=== PATIENT | female | born 1940 | race Caucasian/White ===

== ENCOUNTER 2019-07-02 08:18 | Emergency (ER) | payer MEDICARE ==
[2019-07-02] MEDS ORDERED: ASPIRIN 81 MG CHEWABLE TABLET PO ONE (08:22)
--- NOTE | 2019-07-02 08:41 | Emergency Department Record ---
History of Present Illness - General Chief Complaint: Chest Pain Stated Complaint: CHEST PAIN/PAIN IN ARM Time Seen by Provider: 07/02/19 08:22 Source: Patient, RN notes reviewed Mode of Arrival: Ambulatory - History of Present Illness Initial Comments: patient complains of chest pain as heaviness which stated at 7am and she took one nitro SL and the pain went away. Previous aortic valve replacement and pacemaker. No diaphoresis and no abdominal pain. Cardiology is Dr Beltran at [facility]. Patient said her nitropatch was stopped about 3 weeks ago[address] Primary is Dr Nesbitt. Dr Snider checked out her pacemaker and it is good. MD Complaint: Chest pain Onset/Timin -: Hour(s) Onset: Awoke with symptoms Pain Location: Substernal Quality: Aching, Heaviness, Tightness Consistency: Now resolved - Related Data Home Medications Medication Instructions Recorded Confirmed Last Taken Aspirin [Aspirin EC] 81 mg PO DAILY 07/02/19 07/02/19 1 Day Ago ~07/01/19 Atorvastatin Calcium 20 mg PO DAILY 07/02/19 07/02/19 1 Day Ago ~07/01/19 Ferrous Sulfate 325 mg PO DAILY 07/02/19 07/02/19 1 Day Ago ~07/01/19 Glipizide 5 mg PO DAILY 07/02/19 07/02/19 1 Day Ago ~07/01/19 Levothyroxine Sodium [Synthroid] 125 mcg PO DAILY 07/02/19 07/02/19 1 Day Ago ~07/01/19 Lisinopril 20 mg PO DAILY 07/02/19 07/02/19 1 Day Ago ~07/01/19 Metformin HCl 1,000 mg PO BID 07/02/19 07/02/19 1 Day Ago ~07/01/19 Metoprolol Tartrate [Lopressor] 50 mg PO BID 07/02/19 07/02/19 1 Day Ago ~07/01/19 Nitroglycerin [Nitrostat] 0.4 mg SL TID PRN 07/02/19 07/02/19 1 Day Ago ~07/01/19 Warfarin Sodium 3 mg PO QPM 07/02/19 07/02/19 1 Day Ago ~07/01/19 Previous Rx's Medication Instructions Recorded Nitroglycerin [Nitroglycerin Patch] 1 each TD DAILY #30 patch.[email or web address] 07/02/19 Allergies Allergy/AdvReac Type Severity Reaction Status Date / Time dicyclomine Allergy ANAPHYLAXIS Verified 07/02/19 08:34 Travel Screening - Travel/Exposure Within Last 30 Days Have you traveled within the last 30 days?: No - Travel/Exposure Within Last Year Have you traveled outside the [place] in the last year?: No - Additonal Travel Details Have you been exposed to anyone with a communicable illness?: No - Travel Symptoms Symptom Screening: None Review of Systems Reviewed: No additional complaints except as noted below Constitutional: Reports: As per HPI. Denies: Chills, Fever, Malaise, Night sweats, Weakness, Weight change Eyes: Reports: As per HPI. Denies: Eye discharge, Eye pain, Photophobia, Vision change ENT: Reports: As per HPI. Denies: Congestion, Dental pain, Ear pain, Epistaxis, Hearing loss, Throat pain Respiratory: Reports: As per HPI. Denies: Cough, Dyspnea, Hemoptysis, Stridor, Wheezes Cardiovascular: Reports: As per HPI, Chest pain. Denies: Arrhythmia, Dyspnea on exertion, Edema, Murmurs, Orthopnea, Palpitations, Paroxysmal nocturnal dyspnea, Rheumatic Fever, Syncope Endocrine: Reports: As per HPI. Denies: Fatigue, Heat or cold intolerance, Polydipsia, Polyuria Gastrointestinal: Reports: As per HPI. Denies: Abdominal pain, Constipation, D iarrhea, Hematemesis, Hematochezia, Melena, Nausea, Vomiting Genitourinary: Reports: As per HPI. Denies: Abnormal menses, Discharge, Dyspareunia, Dysuria, Frequency, Hematuria, Incontinence, Retention, Urgency Musculoskeletal: Reports: As per HPI. Denies: Arthralgia, Back pain, Gout, Joint swelling, Myalgia, Neck pain Skin: Reports: As per HPI. Denies: Bruising, Change in color, Change in hair/nails, Lesions, Pruritus, Rash Neurological: Reports: As per HPI. Denies: Abnormal gait, Confusion, Headache, Numbness, Paresthesias, Seizure, Tingling, Tremors, Vertigo, Weakness Psychiatric: Reports: As per HPI. Denies: Anxiety, Auditory hallucinations, Depression, Homicidal thoughts, Suicidal thoughts, Visual hallucinations Hematological/Lymphatic: Reports: As per HPI. Denies: Anemia, Blood Clots, Easy bleeding, Easy bruising, Swollen glands Past Medical History - SOCIAL HISTORY Smoking Status: Never smoker Alcohol Use: None Drug Use: None - RESPIRATORY Hx Respiratory Disorders: No - CARDIOVASCULAR Hx Cardio Disorders: Yes Hx Abnormal EKG: Yes Hx Irregular Heartbeat: Yes (A-fib) Hx Pacemaker/Defib: Yes Hx Vascular Disease: Yes - NEURO Hx Neuro Disorders: Yes Comment:: all over numbness - GI Hx GI Disorders: No - Hx Genitourinary Disorders: No - ENDOCRINE Hx Endocrine Disorders: Yes Hx Diabetes: Yes (type 2) Hx Thyroid Disease: Yes - MUSCULOSKELETAL Hx Musculoskeletal Disorders: Yes Hx Arthritis: Yes - PSYCH Hx Psych Problems: No - HEMATOLOGY/ONCOLOGY Hx Hematology/Oncology Disorders: Yes Hx Anemia: Yes Hx Blood Disorders: Yes Hx Bruising: Yes Family Medical History Any Significant Family History?: Yes Hx Cancer: Father, Mother, Brother/Sister Physical Exam - General General Appearance: Alert, Oriented x3, Cooperative, No acute distress - Head Head exam: Normal inspection - Eye Eye exam: Normal appearance, PERRL Pupils: Normal accommodation - ENT ENT exam: Normal exam, Mucous membranes moist, Normal external ear exam, Normal orophraynx, TM's normal bilaterally Ear exam: Normal external inspection. negative: External canal tenderness Nasal Exam: Normal inspection. negative: Discharge, Sinus tenderness Mouth exam: Normal external inspection, Tongue normal Teeth exam: Normal inspection. negative: Dental caries Throat exam: Normal inspection. negative: Tonsillar erythema, Tonsillar exudate - Neck Neck exam: Normal inspection, Full ROM. negative: Tenderness - Respiratory Respiratory exam: Normal lung sounds bilaterally. negative: Respiratory distress - Cardiovascular Cardiovascular Exam: Regular rate, Normal rhythm, Normal heart sounds - GI/Abdominal GI/Abdominal exam: Soft, Normal bowel sounds. negative: Tenderness - Rectal Rectal exam: Deferred - exam: Deferred - Extremities Extremities exam: Normal inspection, Full ROM, Normal capillary refill. negative: Tenderness - Back Back exam: Reports: Normal inspection, Full ROM. Denies: Muscle spasm, Rash noted, Tenderness - Neurological Neurological exam: Alert, Normal gait, Oriented X3, Reflexes normal - Psychiatric Psychiatric exam: Normal affect, Normal mood - Skin Skin exam: Dry, Intact, Normal color, Warm Course Vital Signs 07/02/19 08:24 Pulse Rate 79 Respiratory 16 Rate Blood Pressure 170/83 Pulse Ox 98 - Reevaluation(s) Reevaluation #1: Discussed plan of care with patient and will draw a second trop at 3 hours 07/02/19 10:48 Reevaluation #2: discussed case with Dr. Voice JAMESON and he said he would get an appointment with Dr Beltran in the next couple of days. Will also restart the nitropatches back up. The office will call her tomorrow for an appointment. 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 Qualified Code(s): I20.8 - Other forms of angina pectoris Disposition: Home, Self-Care Condition: (1) Good Instructions: Chest Pain (ED) Additional Instructions: follow up with Dr Beltran next week and the office will call you tomorrow to make an appointment restart up the nitropatch daily on in the AM and off in the PM return to ED if having any problems Prescriptions: Nitroglycerin [Nitroglycerin Patch] 1 each TD DAILY #30 patch.td24 Forms: Patient Portal Access Time of Disposition: 12:36 Quality - Quality Measures Quality Measures: N/A - Blood Pressure Screening Does Patient Have Any of the Following: No, Active Dx of HTN Blood Pressure Classification: Pre-Hypertensive BP Reading Systolic Measurement: 170 Diastolic Measurement: 83 Screening for High Blood Pressure: Patient Exclusion, Hx of HTN [[id number]]
[2019-07-02 08:45] LABS: BASO % 0.4 % (0-6); EOS % 1.3 % (0-6); GRAN % 59.8 % (47-80); HEMATOCRIT 39.2 % (35.0-47.0); HEMOGLOBIN 12.3 gm/dl (11.6-16.0); LYMPH % 31.8 % (16-45); MEAN CELL VOLUME 93.3 fl (81-97); MEAN CORPUSCULAR HEMOGLOBIN 29.3 pg (27-33); MEAN CORPUSCULAR HGB CONC 31.4 g/dl (32-36); MEAN PLATELET VOLUME 9.8 fl (7.4-10.4); MONO % 6.7 % (0-9); PLATELET COUNT 196 K/uL (130-400); RED CELL DISTRIBUTION WIDTH 15.5 % (11.5-14.5); WHITE BLOOD COUNT W/O DIFF 5.2 K/uL (4.2-12.2)
[2019-07-02 08:53] LABS: BLOOD UREA NITROGEN 13 mg/dL (8-23); CREATININE 0.9 mg/dL (0.5-0.9); EST GLOMERULAR FILTRATION RATE > 60 mL/min
[2019-07-02 08:56] LABS: GLUCOSE,RANDOM 97 mg/dL (74-109)
--- NOTE | 2019-07-02 09:33 | RADIOLOGY REPORT ---
EXAMINATION: Single View Chest EXAM DATE: 07/02/2019 9:20 AM TECHNIQUE: Single view chest INDICATION: chest pain COMPARISON: None. ENCOUNTER: Not applicable FINDINGS: There is cardiomegaly. Median sternotomy changes. No focal consolidation. No effusion or pneumothorax . IMPRESSION: No acute findings. Dictated by: Fabien Jenkins MD on 07/02/2019 9:30 AM. .
[2019-07-02 09:55] LABS: INR 3.2; PROTHROMBIN TIME (PATIENT) 30.9 SECONDS (9.5-12.1)
== END 2019-07-02 12:45 | disposition home or self-care (01) ==
LOC: ER 08:18
DX: I20.8 Other forms of angina pectoris (principal); I48.91 Unspecified atrial fibrillation; E11.9 Type 2 diabetes mellitus without complications; Z79.01 Long term (current) use of anticoagulants; Z95.2 Presence of prosthetic heart valve; Z95.0 Presence of cardiac pacemaker; Z79.84 Long term (current) use of oral hypoglycemic drugs
CPT/HCPCS: 71045; 80048; 84443; 84484; 85025; 85610; 85730; 93005; 93010; 99284